=== PATIENT | male | born 1940 | race African-American/Black ===

== ENCOUNTER 2018-08-29 08:59 | Emergency (ER) | payer BC, MEDICARE ==
[~2018-08-29] VITALS: Ht 170.2 cm; Wt 81.6 kg
[~2018-08-29 08:59] MED LIST: BICALUTAMIDE50 MG ORAL; CIPROFLOXACIN500 M2 ORAL; LIPITOR40 MG ORAL; NITROFURANTOIN100 M2 ORAL; PHENAZOPYRIDIN100 MG ORAL; PREVACID30 MG ORAL; VITAMIN D1000 UNI1 ORAL
[2018-08-29 09:03] VITALS: BP 142/74
--- NOTE | 2018-08-29 09:11 | NUR ---
ED Nurse Note: Pt c/o boil on his left side mandible x 2 weeks. Boil is closed with no drainage. Pt is AAO x4, ambulatory.
[2018-08-29] MEDS ORDERED: Bactrim-DS 1 tab ORAL ONE (09:15)
[2018-08-29] MEDS ORDERED: Lidocaine 1% 10mg/ml/Epi 0.005mg/ml 30ml vial INJ ONE (09:15)
--- NOTE | 2018-08-29 09:17 | Emergency Room Report ---
History of Present Illness General Chief Complaint: Skin Rash/Abscess Source: Patient Present Illness HPI Patient presents with swelling and tenderness left side of his jaw. He has bruising here. They've been treating it with gentian yuliya. He denies any fevers or chills. There's slight amount of pain there is not radiating. Pain rated /10, pressure and aching, minimal radiation along jaw. 2 months ago the patient took clindamycin. It may have been for this problem. It wasn't as severe it is now. He had adverse reaction with a loose stools from that. The bump has been present for many months. The patient's tetanus was last administered 2 years ago. H/O BPH and urinary retention. No urinary sy now, on meds. Allergies: Coded Allergies: PENICILLINS (Verified Allergy, 08/04/13) PINEAPPLE (Verified Allergy, 08/04/13) Patient History Past Medical History: see triage record Social History: Denies: smoking, alcohol use, drug use Social History Narrative from [facility] Reviewed Nursing Documentation: PMH: Agreed; PSxH: Agreed Nursing Documentation-PMH Hx Hypertension: Yes Review of Systems Constitutional: Denies: chills, fever ENT: Reports: see HPI Respiratory: Denies: shortness of breath Musculoskeletal: Denies: joint pain, joint swelling Skin: Reports: see HPI Neurological: Denies: headache Physical Exam Vital Signs Date Time Temp Pulse Resp B/P (MAP) Pulse Ox O2 Delivery O2 Flow Rate FiO2 08/29/18 09:03 97.9 22 142/74 98 Room Air 08/29/18 09:03 96 Sp02 EP Interpretation: reviewed, normal General Appearance: well appearing, no apparent distress Head: normocephalic, atraumatic Eyes: bilateral eye PERRL, bilateral eye other - arcus ENT: hearing grossly normal, normal voice Neck: full range of motion, supple Respiratory: no respiratory distress, speaking full sentences Cardiovascular #1: regular rate, rhythm Cardiovascular #2: 2+ radial (R) Gastrointestinal: normal inspection Musculoskeletal: digits/nails normal, gait/station normal, normal range of motion Neurologic: alert, normal gait, grossly normal Psychiatric: mood/affect normal Skin: other - abscess L jaw Procedures Incision and Drainage Incision and Drainage : Consent: Verbal Blade Size: 11 I & D Procedure: betadine prep, sterile drapes applied, sterile dressing applied, gauze wick placed Wound Location: face Wound's Depth, Shape: superficial Wound Length (cm): 0 - 0.5 Wound Explored: contaminated - pus and large amount of sebaceous material expressed Irrigated w/ Saline (ccs): 20 Anesthesia: Lidocaine w/ Epi Patient Tolerated: Well Complications: None Medical Decision Making Diagnostic Impression: Primary Impression: Infected sebaceous cyst ER Course Patient presents with a facial abscess. This needs to be drained. The patient needs to be treated with antibiotics. I and D with a large amount of sebaceous material removed. See note. Patient stable for outpatient observation and treatment. Last Vital Signs Date Time Temp Pulse Resp B/P (MAP) Pulse Ox O2 Delivery O2 Flow Rate FiO2 08/29/18 09:56 97.5 82 18 135/80 100 Room Air Status: improved Disposition: HOME, SELF-CARE Condition: Improved Scripts Trimethoprim/Sulfamethoxazole 160/800* (BACTRIM DS TABLET*) 1 Each Tablet 1 TAB ORAL Q12H, #14 TAB 0 Refills Prov: Kvng Coreas MD 08/29/18 Kvng Coreas MD Aug 29, 2018 09:17
[2018-08-29] MEDS ORDERED: BACTRIM DS TAB1 EAC1 ORAL (09:48)
--- NOTE | 2018-08-29 09:56 | NUR ---
ER DISCHARGE NOTE: Patient is cleared to be discharged per ERMD, pt is aox4, on room air, with stable vital signs. pt was given dc and prescription instructions, pt was able to verbalize understanding, pt id band removed. pt is able to ambulate with steady gait. pt took all belongings and left with his .
== END 2018-08-29 09:56 | disposition home or self-care (01) ==
LOC: EMR 09:10
DX: L72.3 Sebaceous cyst (principal); I10 Essential (primary) hypertension; Z88.0 Allergy status to penicillin
CPT/HCPCS: 99283

== ENCOUNTER 2018-08-31 11:04 | Emergency (ER) | payer BC, MEDICARE ==
[~2018-08-31] VITALS: Ht 170.2 cm; Wt 81.6 kg
[~2018-08-31 11:04] MED LIST changes: +BACTRIM DS TAB1 EAC1 ORAL
[2018-08-31 11:14] VITALS: BP 143/77
--- NOTE | 2018-08-31 11:14 | NUR ---
ED Nurse Note: Patient presents to ER due to wound recheck; packing dressing done 2 days ago. Removed the dressing, scant amount of brownish drainage on the dressing noted. Packing dressing intact. Reports no fever, chills or pain noted. No facial graimcing or guarding noted.
[2018-08-31] MEDS ORDERED: BACITRACIN15 GM TOPIC (11:25)
[2018-08-31] MEDS: Bacitracin Oint UD TOPIC ONE ×2 (11:39→11:43)
--- NOTE | 2018-08-31 11:40 | NUR ---
ED Nurse Note: ERMD removed packing dressing from the left sided face. No drainage noted. Cleaned the area with Chlor-prep, applied Bacitracin ointment and dry dressing.
[2018-08-31 11:47] VITALS: BP 143/77
--- NOTE | 2018-08-31 11:47 | NUR ---
ER DISCHARGE NOTE: Patient is cleared to be discharged per ERMD.D/C instruction and prescription given to patient and spouse. All questions were answered. Ambulated out with steady gait with all his belongings.
--- NOTE | 2018-08-31 14:06 | Emergency Room Report ---
History of Present Illness General Chief Complaint: Wound Recheck/Suture Removal Source: Medical Record Present Illness HPI 78-year-old male presents ED for wound check. Had sebaceous cyst gland drained 2 days ago in ED. Packing in place. Was placed on antibiotics. States pain is overall improved. Dull, 5 out of 10, nonradiating. States he is compliant with the antibiotics. Denies fevers or chills. No other aggravating relieving factors. Denies any other associated symptoms Allergies: Coded Allergies: PENICILLINS (Verified Allergy, 08/04/13) PINEAPPLE (Verified Allergy, 08/04/13) Patient History Past Medical History: GERD Past Surgical History: none Pertinent Family History: none Social History: Denies: smoking, alcohol use, drug use Immunizations: UTD Reviewed Nursing Documentation: PMH: Agreed; PSxH: Agreed Nursing Documentation-PMH Past Medical History: No History, Except For Hx Hypertension: Yes Hx Pacemaker: No Hx Asthma: No Hx COPD: No Hx Gastrointestinal Problems: Yes - GERD Hx Dialysis: No History Of Psychiatric Problem: No Hx Neurological Problems: No Hx Cerebrovascular Accident: No Hx Seizures: No Review of Systems All Other Systems: negative except mentioned in HPI Physical Exam Vital Signs Date Time Temp Pulse Resp B/P (MAP) Pulse Ox O2 Delivery O2 Flow Rate FiO2 08/31/18 11:14 98.1 72 14 143/77 99 Room Air Sp02 EP Interpretation: reviewed, normal General Appearance: no apparent distress, alert, GCS 15, non-toxic Head: normocephalic Eyes: bilateral eye normal inspection, bilateral eye PERRL ENT: normal ENT inspection Neck: normal inspection Respiratory: normal inspection Cardiovascular #1: normal inspection Gastrointestinal: normal inspection Rectal: deferred Genitourinary: no CVA tenderness Musculoskeletal: normal inspection Neurologic: alert, oriented x3, responsive, motor strength/tone normal, sensory intact, speech normal Psychiatric: normal inspection Skin: other - I&D site C/D/I, packing removed. no surrounding erythema/ induration. no discharge Lymphatic: normal inspection Medical Decision Making Diagnostic Impression: Primary Impression: Encounter for wound re-check ER Course Hospital Course 78-year-old M presents to ED for wound check. s/p I&D sebaceous gland cyst Clinical course Patient placed on stretcher. Wound appears clean dry and intact with induration and erythema improved compared to prior visit. Packing removed. Discussed findings with patient. Patient to be safely discharged to home at this time. Continue antibiotics. Wound care instructions given. Safe for discharge close outpatient follow-up Diagnosis - encounter for wound re-check Stable and discharged to home. continue abx as directed. Followup with PMD. Return to ED if any signs of infection develop Last Vital Signs Date Time Temp Pulse Resp B/P (MAP) Pulse Ox O2 Delivery O2 Flow Rate FiO2 08/31/18 11:47 98.1 72 14 143/77 99 Room Air Status: improved Disposition: HOME, SELF-CARE Condition: Stable Scripts Bacitracin (Bacitracin) 28.4 Gm Oint...g. 1 APPLIC TOPIC THREE TIMES A DAY, #28.4 GM Prov: Moses Bolton MD 08/31/18 Referrals: NOT CHOSEN IPA/,REFERRING Patient Instructions: Wound Check Additional Instructions: continue your antibiotics as prescribed. followup with your PMD Moses Bolton MD Aug 31, 2018 14:06
== END 2018-08-31 11:47 | disposition home or self-care (01) ==
LOC: EMR 11:30
DX: L72.3 Sebaceous cyst (principal); K21.9 Gastro-esophageal reflux disease without esophagitis; I10 Essential (primary) hypertension; Z88.0 Allergy status to penicillin; Z91.018 Allergy to other foods
CPT/HCPCS: 99281

== ENCOUNTER 2018-11-18 16:43 | Emergency (ER) | payer BC, MEDICARE ==
[~2018-11-18] VITALS: Ht 170.2 cm; Wt 81.6 kg
[~2018-11-18 16:43] MED LIST changes: +BACITRACIN15 GM TOPIC
--- NOTE | 2018-11-18 17:00 | NUR ---
ED Nurse Note: PT WALKED IN TO ER TODAY FROM HOME. AOX4. PT C/O INTERMITTENT PERIODS OF DIARRHEA X MAY 2018. MOST RECENT PERIOD OF DIARRHEA HAS LASTED ABOUT 1.5 MONTHS. LAST BM X PRIOR TO ARRIVAL WHICH PT STATES WAS LIQUID. ACTIVE BOWEL SOUNDS IN ALL QUADRANTS. ABDOMEN NONDISTENDED AND NONTENDER TO PALPATION. PT DENIES ANY PAIN. PT DENIES NAUSEA OR VOMITING. PT DENIES RECENT TRAVEL.
[2018-11-18 17:01] VITALS: BP 150/72
--- NOTE | 2018-11-18 17:04 | Emergency Room Report ---
History of Present Illness General Chief Complaint: Diarrhea Source: Patient Present Illness HPI Patient presents with reports of diarrhea Patient reports that the symptoms have been ongoing off and on for the past 2 months patient has Complex medical history including prostate cancer Patient reports being on multiple medications Denies any abdominal pain or cramping with this denies any fevers or chills patient was also on antibiotics about 2 months ago Denies any weakness denies any rash Allergies: Coded Allergies: PENICILLINS (Verified Allergy, 08/04/13) PINEAPPLE (Verified Allergy, 08/04/13) Patient History Past Medical History: see triage record Pertinent Family History: none Reviewed Nursing Documentation: PMH: Agreed; PSxH: Agreed Nursing Documentation-PMH Hx Hypertension: Yes Hx Pacemaker: No Hx Asthma: No Hx COPD: No Hx Cancer: Yes - Prostate CA Hx Gastrointestinal Problems: Yes - GERD Hx Dialysis: No Hx Neurological Problems: No Hx Cerebrovascular Accident: No Hx Seizures: No Review of Systems All Other Systems: negative except mentioned in HPI Physical Exam Vital Signs Date Time Temp Pulse Resp B/P (MAP) Pulse Ox O2 Delivery O2 Flow Rate FiO2 11/18/18 16:45 97.9 100 17 148/68 (94) 99 Room Air Sp02 EP Interpretation: reviewed, normal General Appearance: well appearing, no apparent distress Head: normocephalic, atraumatic Eyes: bilateral eye PERRL, bilateral eye EOMI ENT: hearing grossly normal, normal pharynx, TMs + canals normal, uvula midline Neck: full range of motion, supple, no meningismus, no bony tend Respiratory: lungs clear, normal breath sounds, no rhonchi, no respiratory distress, no retraction, no accessory muscle use Cardiovascular #1: normal peripheral pulses, regular rate, rhythm, no edema, no gallop, no JVD, no murmur Gastrointestinal: normal bowel sounds, non tender, soft, no mass, no organomegaly, non-distended, no guarding, no hernia, no pulsatile mass, no rebound Genitourinary: no CVA tenderness Musculoskeletal: normal inspection Neurologic: oriented x3, responsive, museum informatics specialist III-XII nml as tested, motor strength/ tone normal, sensory intact Psychiatric: mood/affect normal Skin: normal color, no rash, warm/dry, palpation normal Lymphatic: normal inspection, no adenopathy Medical Decision Making Diagnostic Impression: Primary Impression: Diarrhea ER Course Multiple differentials and consideration including but not limited to infectious , medication reaction, enteritis Patient's blood work is at baseline levels He remains hemodynamically stable Patient has had multiple medications that could contribute to this He is encouraged to follow-up with his specialist and return with any changes Please note that C. difficile was also sent Labs Test 11/18/18 17:20 White Blood Count 5.2 K/UL (4.8-10.8) Red Blood Count 4.78 M/UL (4.70-6.10) Hemoglobin 14.5 G/DL (14.2-18.0) Hematocrit 43.8 % (42.0-52.0) Mean Corpuscular Volume 92 FL (80-99) Mean Corpuscular Hemoglobin 30.2 PG (27.0-31.0) Mean Corpuscular Hemoglobin Concent 33.0 G/DL (32.0-36.0) Red Cell Distribution Width 12.8 % (11.6-14.8) Platelet Count 207 K/UL (150-450) Mean Platelet Volume 9.6 FL (6.5-10.1) Neutrophils (%) (Auto) % (45.0-75.0) Lymphocytes (%) (Auto) % (20.0-45.0) Monocytes (%) (Auto) % (1.0-10.0) Eosinophils (%) (Auto) % (0.0-3.0) Basophils (%) (Auto) % (0.0-2.0) Differential Total Cells Counted 100 Neutrophils % (Manual) 53 % (45-75) Lymphocytes % (Manual) 42 % (20-45) Monocytes % (Manual) 5 % (1-10) Eosinophils % (Manual) 0 % (0-3) Basophils % (Manual) 0 % (0-2) Band Neutrophils 0 % (0-8) Platelet Estimate Adequate Platelet Morphology Normal Red Blood Cell Morphology Normal Sodium Level 143 MMOL/L (136-145) Potassium Level 4.7 MMOL/L (3.5-5.1) Chloride Level 107 MMOL/L (98-107) Carbon Dioxide Level 25 MMOL/L (21-32) Anion Gap 11 mmol/L (5-15) Blood Urea Nitrogen 14 mg/dL (7-18) Creatinine 1.0 MG/DL (0.55-1.30) Estimat Glomerular Filtration Rate mL/min (>60) Glucose Level 138 MG/DL (74-106) Calcium Level 9.4 MG/DL (8.5-10.1) Total Bilirubin 0.2 MG/DL (0.2-1.0) Aspartate Amino Transf (AST/SGOT) 20 U/L (15-37) Alanine Aminotransferase (ALT/SGPT) 13 U/L (12-78) Alkaline Phosphatase 341 U/L (46-116) Total Creatine Kinase 95 U/L (26-308) Total Protein 7.6 G/DL (6.4-8.2) Albumin 3.7 G/DL (3.4-5.0) Globulin 3.9 g/dL Albumin/Globulin Ratio 0.9 (1.0-2.7) Lipase 296 U/L (73-393) Last Vital Signs Date Time Temp Pulse Resp B/P (MAP) Pulse Ox O2 Delivery O2 Flow Rate FiO2 11/18/18 17:01 98.1 95 24 150/72 100 Room Air Status: improved Disposition: HOME, SELF-CARE Condition: Improved Scripts Psyllium Husk (METAMUCIL) 0.52 Gm Capsule 2 TSP PO DAILY for 7 Days, CAP Prov: Jordan Morrissey DO 11/18/18 Additional Instructions: Patient is provided with the discharge instructions notified to follow up with primary doctor in the next 2-3 days otherwise return to the er with any worsening symptoms. Please note that this report is being documented using CBIT A/S technology. This can lead to erroneous entry secondary to incorrect interpretation by the dictating instrument. Jordan Morrissey DO Nov 18, 2018 17:04
[2018-11-18] MEDS ORDERED: FLOMAX0.4 MG ORAL (17:10)
[2018-11-18] MEDS ORDERED: PIOGLITAZONE-M1 EAC1 ORAL (17:10)
[2018-11-18] MEDS ORDERED: TRAMADOL HCL50 MG ORAL (17:10)
[2018-11-18 17:36] LABS: HEMATOCRIT 43.8 % (42.0-52.0); HEMOGLOBIN 14.5 G/DL (14.2-18.0); MEAN CORPUSCULAR VOLUME 92 FL (80-99); RED BLOOD COUNT 4.78 M/UL (4.70-6.10); RED CELL DISTRIBUTION WIDTH 12.8 % (11.6-14.8); WHITE BLOOD COUNT 5.2 K/UL (4.8-10.8)
[2018-11-18 17:40] LABS: ANION GAP 11 mmol/L (5-15); BLOOD UREA NITROGEN 14 mg/dL (7-18); CALCIUM 9.4 MG/DL (8.5-10.1); CARBON DIOXIDE 25 MMOL/L (21-32); CHLORIDE 107 MMOL/L (98-107); POTASSIUM 4.7 MMOL/L (3.5-5.1); SODIUM 143 MMOL/L (136-145)
[2018-11-18 17:41] LABS: PLATELET COUNT 207 K/UL (150-450)
[2018-11-18 17:45] LABS: ALANINE AMINOTRANSFERASE 13 U/L (12-78); ALBUMIN 3.7 G/DL (3.4-5.0); ALBUMIN/GLOBULIN RATIO 0.9 (1.0-2.7); ALKALINE PHOSPHATASE 341 U/L (46-116); ASPARTATE AMINO TRANSFERASE 20 U/L (15-37); BILIRUBIN,TOTAL 0.2 MG/DL (0.2-1.0); CREATINE KINASE 95 U/L (26-308)
[2018-11-18] MEDS ORDERED: METAMUCIL0.52 G1 PO (18:21)
--- NOTE | 2018-11-18 18:27 | NUR ---
ED Nurse Note: PT LAYING PEACEFULLY IN BED IN NAD. AOX4. PRESCRIPTION AND DISCHARGE PAPERWORK EXPLAINED TO PT. PT VERBALIZES UNDERSTANDING AND ALL QUESTIONS ANSWERED. PRESCRIPTION AND DISCHARGE PAPERWORK GIVEN TO PT, IV AND ID WRISTBAND REMOVED. PT WALKED OUT OF ER WITH STEADY GAIT AND ALL BELONGINGS.
[2018-11-18 18:28] VITALS: BP 135/78
== END 2018-11-18 18:31 | disposition home or self-care (01) ==
LOC: EMR 17:23
DX: R19.7 Diarrhea, unspecified (principal); Z85.46 Personal history of malignant neoplasm of prostate; Z88.0 Allergy status to penicillin; Z91.018 Allergy to other foods; I10 Essential (primary) hypertension; K21.9 Gastro-esophageal reflux disease without esophagitis
CPT/HCPCS: 36415; 80053; 82550; 83690; 85007; 85025; 87324; 99284

== ENCOUNTER 2018-12-28 08:36 | Emergency (ER) | payer BC, MEDICARE ==
[~2018-12-28] VITALS: Ht 170.2 cm; Wt 81.2 kg
[~2018-12-28 08:36] MED LIST changes: +CEPHALEXIN500 MG ORAL; +FLOMAX0.4 MG ORAL; +METAMUCIL0.52 G1 PO; +PIOGLITAZONE-M1 EAC1 ORAL; +TRAMADOL HCL50 MG ORAL
[2018-12-28 08:45] VITALS: BP 143/81
--- NOTE | 2018-12-28 08:50 | NUR ---
ED Nurse Note: Patient walked into ED from home requesting that he wants his urinary catheter that was placed here at [facility] 12/23/18 to be removed. patient is alert awake x4 ambulatory.
--- NOTE | 2018-12-28 09:00 | NUR ---
ED Nurse Note: Griffith catheter removed without complication. patient denies any pain, slight discomfort on the area reported.
--- NOTE | 2018-12-28 09:01 | NUR ---
ER DISCHARGE NOTE: Patient is cleared to be discharged per ERMD DR CHRISTOPHER, pt is aox4, on room air, with stable vital signs. pt was given dc and prescription instructions, pt was able to verbalize understanding, pt id band removed without complications. pt is able to ambulate with steady gait. pt took all belongings.
[2018-12-28 09:02] VITALS: BP 143/81
--- NOTE | 2018-12-28 09:07 | Emergency Room Report ---
History of Present Illness General Chief Complaint: General Complaint Source: Patient Present Illness HPI Patient presents to the emergency department today requesting a Griffith removal. Patient had a history of UTI urinary retention with urinary frequency. Patient was started on antibiotics which he is completed. He was seen here in our emergency department about a week ago at that time he was diagnosed with a UTI and possible urinary retention. Patient requested a Griffith at that time. Griffith was placed. Patient states that he feels much better and is requesting Griffith removal. States that he does not have follow-up yet. Denies any fever nausea vomiting diarrhea chills. Denies any chest pain shortness of breath. No other modifying factors. No other associated signs and symptoms. No other complaints were noted. Allergies: Coded Allergies: PENICILLINS (Verified Allergy, 08/04/13) PINEAPPLE (Verified Allergy, 08/04/13) Patient History Past Medical History: HTN, GERD, other - Prostate CA Past Surgical History: none Pertinent Family History: none Social History: Denies: smoking, alcohol use, drug use Reviewed Nursing Documentation: PMH: Agreed; PSxH: Agreed Nursing Documentation-PMH Past Medical History: No History, Except For Hx Hypertension: Yes Hx Pacemaker: No Hx Asthma: No Hx COPD: No Hx Cancer: Yes - Prostate CA Hx Gastrointestinal Problems: Yes - GERD Hx Dialysis: No Hx Neurological Problems: No Hx Cerebrovascular Accident: No Hx Seizures: No Review of Systems All Other Systems: negative except mentioned in HPI Physical Exam Vital Signs Date Time Temp Pulse Resp B/P (MAP) Pulse Ox O2 Delivery O2 Flow Rate FiO2 12/28/18 08:45 98.6 87 16 143/81 97 Room Air Sp02 EP Interpretation: reviewed, normal General Appearance: normal inspection, well appearing, no apparent distress, alert Head: atraumatic Eyes: bilateral eye normal inspection ENT: normal ENT inspection, hearing grossly normal, normal voice Neck: normal inspection, full range of motion, supple, no bony tend Respiratory: normal inspection, lungs clear, normal breath sounds, no respiratory distress, no retraction, no wheezing Cardiovascular #1: regular rate, rhythm, no edema Gastrointestinal: normal inspection, normal bowel sounds, non tender, soft, no guarding, no hernia Genitourinary: no CVA tenderness Musculoskeletal: normal inspection, back normal, normal range of motion Neurologic: normal inspection, alert, responsive, speech normal Psychiatric: normal inspection, judgement/insight normal, mood/affect normal Medical Decision Making Diagnostic Impression: Primary Impression: Encounter for Griffith catheter removal ER Course Patient presents emergency department today complaining of recent UTI and requesting Griffith removal. Patient does have a history of prostate t cancer and possible urinary retention. However patient was able to urinate in the past therefore we will remove patient's Griffith. Patient tolerated Griffith removal without difficulty. Patient is advised to follow-up with primary care physician return to emergency department if he has any urinary retention or urinary incontinence fever and as needed. Patient is advised to follow up with primary doctor in 2-3 days and return the emergency room for any worsening symptoms and as needed. Last Vital Signs Date Time Temp Pulse Resp B/P (MAP) Pulse Ox O2 Delivery O2 Flow Rate FiO2 12/28/18 08:52 87 16 Room Air 12/28/18 08:45 98.6 143/81 (101) 97 Status: improved Disposition: HOME, SELF-CARE Condition: Stable Patient Instructions: Medical Screening Exam Tirso Keller MD Dec 28, 2018 09:07
== END 2018-12-28 09:07 | disposition home or self-care (01) ==
LOC: EMR 08:58
DX: Z46.6 Encounter for fitting and adjustment of urinary device (principal); I10 Essential (primary) hypertension; K21.9 Gastro-esophageal reflux disease without esophagitis; Z88.0 Allergy status to penicillin; Z91.018 Allergy to other foods; Z85.46 Personal history of malignant neoplasm of prostate
CPT/HCPCS: 99282